=== PATIENT | female | born 2000 | race Caucasian/White ===

== ENCOUNTER 2022-05-01 18:22 | Emergency (ER) | payer OTHER ==
[~2022-05-01] VITALS: Ht 160 cm; Wt 91.0 kg
[2022-05-01 18:29] VITALS: BP 144/92
[2022-05-01] MEDS ORDERED: IBUP-2030 MT ×3 (19:22→19:23)
[2022-05-01] MEDS ORDERED: IBUPROFEN 800MG TABLET PO ONE (19:30)
[2022-05-01] MEDS ORDERED: IBUPROFEN 400MG TABLET PO NR (19:30)
== END 2022-05-01 21:10 | disposition home or self-care (01) ==
LOC: ER 18:22
DX: S80.11XA Contusion of right lower leg, initial encounter (principal); V49.50XA Passenger injured in collision with unspecified motor vehicles in traffic accident, initial encounter; Y93.89 Activity, other specified; Y92.89 Other specified places as the place of occurrence of the external cause; Y99.8 Other external cause status
CPT/HCPCS: 73590; 81025; 99283